=== PATIENT | female | born 1990 | race Caucasian/White ===

== ENCOUNTER 2022-12-04 22:12 | Outpatient (CLI) | payer MEDICAID | END 2022-12-04 23:59 | disposition critical access hospital (66) | LOC: EMS 22:12 | DX: R51.9 Headache, unspecified (principal); S00.83XA Contusion of other part of head, initial encounter; W18.30XA Fall on same level, unspecified, initial encounter; Y92.002 Bathroom of unspecified non-institutional (private) residence as the place of occurrence of the external cause | CPT/HCPCS: A0425; A0429; A0999 ==

== ENCOUNTER 2022-12-04 22:15 | Emergency (ER) | payer MEDICAID ==
[2022-12-04] MEDS ORDERED: KETOROLAC 30 MG/ML VIAL IVP STA (22:36)
--- NOTE | 2022-12-04 22:52 | ED Physician Documentation ---
History of Present Illness - Stated complaint Stated Complaint: FALL/HEAD PX - Chief complaint Chief Complaint: Ext Problem - History obtained from History obtained from: Patient - History of Present Illness Pain level max: 8 Pain level now: 8 - Additonal information Additional information: Patient is a 32-year-old female who presents to the emergency department complaining of a fall about 5 hours prior to arrival. She states she fell in the bathtub after using fentanyl. She checked herself into rehab tonight but was complaining of continued headache so they sent her here for evaluation. No loss of consciousness. No nausea or vomiting. Rates the headache as an 8 out of 10. Patient is not anticoagulated. No seizure activity. Worse with light, sound and movement. Nothing makes it better. Denies any possibility of . Review of Systems Constitutional: denies: Fever, Chills Nose: denies: Rhinorrhea / runny nose, Congestion Cardiac: denies: Chest pain / pressure, Palpitations Respiratory: denies: Dyspnea, Cough GI: denies: Abdominal Pain, Nausea, Vomiting, Diarrhea : denies: Now EGA Skin: denies: Rash Musculoskeletal: denies: Neck pain, Back pain Neurologic: denies: Headache PD PAST MEDICAL HISTORY - Past Medical History Past Medical History: No - Allergies Allergies/Adverse Reactions: Allergies Allergy/AdvReac Type Severity Reaction Status Date / Time No Known Drug Allergies Allergy Verified 12/04/22 22:53 - Social History Does the pt have substance abuse?: Yes Substance Use and Type: Other (Fentanyl) - Family History Family history: reports: Non contributory PD ED PE NORMAL - Vitals Vital signs reviewed: Yes - General General: Alert and oriented X 3, No acute distress - HEENT HEENT: PERRL, Moist mucous membranes, Pharynx benign, Dentition benign, Other (Hematoma and abrasion to the right forehead. No palpable skull fractures. No facial bone tenderness. Mild abrasion on the bridge of the nose. No epistaxis.) - Neck Neck: Supple, no meningeal sign, No bony TTP - Cardiac Cardiac: RRR, Strong equal pulses - Respiratory Respiratory: No respiratory distress, Clear bilaterally - Abdomen Abdomen: Soft, Non tender, Non distended - Back Back: No CVA TTP, No spinal TTP - Derm Derm: Warm and dry - Extremities Extremities: Normal ROM s pain, No edema - Neuro Neuro: Alert and oriented X 3, clip bolter and wrapper 2-12 intact, No motor deficit, No sensory deficit, Normal speech Eye Opening: Spontaneous Motor: Obeys Commands Verbal: Oriented GCS Score: 15 - Psych Psych: Normal mood, Normal affect Results - Vitals Vitals: Vital Signs - 24 hr 12/04/22 12/04/22 22:21 23:55 Temperature 36.9 C Heart Rate 90 78 Respiratory 16 16 Rate Blood Pressure 126/79 112/74 O2 Saturation 100 100 Oxygen O2 Source Room air - Rads (name of study) head Ct Relevant Findings:: Final report received, See rad report PD Medical Decision Making - ED course Complexity details: reviewed results, re-evaluated patient, considered differential, d/w patient ED course: No acute findings on head CT. Headache resolved with Toradol. No altered mental status. No evidence of fracture or intracranial hemorrhage. We will have her return to detox/rehab. Patient counseled regarding signs and symptoms for which I believe and urgent re-evaluation would be necessary. Patient with good understanding of and agreement to plan and is comfortable going home at this time This document was made in part using voice recognition software. While efforts are made to proofread this document, sound alike and grammatical errors may occur. Departure - Departure Disposition: 01 Home, Self Care Clinical Impression: Closed head injury Qualifiers: Encounter type: initial encounter Qualified Code(s): S09.90XA - Unspecified injury of head, initial encounter Condition: Good Instructions: ED Head Injury Closed Follow-Up: Your,doctor in 1 week [Other] Comments: Your CT scan does not show any acute abnormalities. Please follow-up with your doctor as needed for further care. You can sleep, they do not need to wake you up for your head injury. Please return if you worsen. Discharge Date/Time: 12/04/22 23:57
--- NOTE | 2022-12-04 23:17 | CT Report ---
PROCEDURE: HEAD WO INDICATIONS: fall, head injury TECHNIQUE: Noncontrast 4.5 mm thick angled axial sections acquired from the foramen magnum to the vertex. For r adiation dose reduction, the following was used: automated exposure control, adjustment of mA and/or kV according to patient size. COMPARISON: None. FINDINGS: Image quality: Excellent. CSF spaces: Basal cisterns are patent. No extra-axial fluid collections. Ventricles are normal in size and shape. Brain: No midline shift. No intracranial masses or hemorrhage. Fowler-white matter interface is norm al. Skull and face: Calvarium and visualized facial bones are intact, without suspicious lesions. Sinuses: Visualized sinuses and mastoids are clear. IMPRESSION: No acute intracranial abnormality. Reviewed by: Adelso Cruz MD on 12/04/2022 11:16 PM PDT Approved by: Adelso Cruz MD on 12/04/2022 11:16 PM PDT Station ID: [id number]
[2022-12-04 23:57] VITALS: BP 112/74
== END 2022-12-04 23:57 | disposition home or self-care (01) ==
LOC: ED 22:15
DX: S09.90XA Unspecified injury of head, initial encounter (principal); W18.2XXA Fall in (into) shower or empty bathtub, initial encounter
CPT/HCPCS: 96374; 99283